=== PATIENT | female | born 1955 | race Caucasian/White ===

== ENCOUNTER 2021-02-06 12:45 | Outpatient (RCR) | payer OTHER, MEDICAID, SELFPAY ==
--- NOTE | 2021-01-16 16:14 | PT.OIE ---
Current Diagnoses Low back pain, unspecified (01/16/21) Visit Care Team Role Provider Type Nery Patel MD Attending Provider Non-Staff Primary Care Provider Referring Provider Specialty: Medical Address: [address] [place] [address], [id number] Email: Physical Therapy Initial Evaluation PT-OP-A Visit Information Start: 01/13/21 14:33 Freq: Status: Active Protocol: Document 01/16/21 14:28 LRN (Rec: 01/16/21 16:13 LRN [id number]) Out-Patient Physical Therapy Visit Information Visit Information Visit Type Initial Evaluation Visit Start Time 14:28 Visit Stop Time 15:20 Total Visit Minutes 52 Visit Number 1 Evaluation Information Evaluation Date 01/16/21 Precautions Precautions R Rotator cuff injury - 10 yrs ago. PT-OP-B Current Condition Start: 01/13/21 14:33 Freq: Status: Active Protocol: Document 01/16/21 14:28 LRN (Rec: 01/16/21 16:13 LRN [id number]) Current Condition History of Current Condition Onset Date 2 yrs ago (middle of 2018) Current Complaints Pain with sitting, bending forward, transfers, & putting pants on. History of Current Condition See developmental history below. Pt has ongoing R LBP from injury 2 yrs ago after using a chain saw in a constant position (leaning forward and to R). Pt has pain with leaning forward to pharmacy picking tech objects, lifting R leg (flexion) to put pants on. In morning must hang onto objects to put pant leg on with an increase in back pain. Pt is R handed. Prior Treatments and Tests Physical therapist in for 1 session and was given exercises for a twisted pelvis. Developmental History Developmental History Spent a day using chain saw leaning to the right and forward and the next day couldn't get out of bed or walk due to pain in the R side of the LB. For 6 months pain went down the R leg and sometimes the L. Pain also present across the low back. After 1 month was able to walk. Couldn't swim for a year (was a swimmer), but now can swim. Pain down the leg and the tingling down the leg went away after 6 months. Can can sit with support on the back. Can sit but back hurts more. Can't lift anything heavy. Can pick of trash. Treatment Goals Patient/Caregiver Goals Pt wants to know what she should be doing to strengthen Pt goal is to be painfree with bending over to pharmacy picking tech an object Pt will be able to sit 30' without increasing pain and put clothes on without holding onto something. Prior Functional Status Baseline Function- ADL's Independent Baseline Function- Mobility Independent Baseline Function- Gait Walking dog 1 mile a day. Baseline Function- Other Swam 2-3x/week Current Functional Impairments (Reported) Functional Limitations- ADL's Independent with ADLs Functional Limitations- Mobility/Gait Walking dog 1 mile a day. Functional Limitations- Recreation/ Yard work Hobbies Functional Limitations- Other Swims 1x/week Personal Factors Other Personal Factors That May Effect Lives [facility] with Therapy/Recovery partner. PT-OP-C Subjective Start: 01/13/21 14:33 Freq: Status: Active Protocol: Document 01/16/21 14:28 LRN (Rec: 01/16/21 16:13 LRN [id number]) Patient Questionnaires Oswestry Low Back Index Oswestry Score 26 Oswestry Impairment 40 to 59% Impaired (Score 40- 59) OP-PT Pain Assessment Pain Assessment Grid Paper Pain Assessment Grid Completed Yes Location R Low back Pain Location Details R low back, rated 4-6/10. Intensity 6 Scale Used Numeric (0 - 10) Description Sharp,Stabbing Description- Other With movement pain is stabbing in nature Frequency Constant Pain Aggravating Factors Changing Position,Sitting, Bending Pain Alleviating Factors Heat,Medication,Sitting Other Pain Alleviating Factors IBP occasionally Home Pain Medication Use Pain Medications Used Yes Home Pain Medication Frequency IBP rarely PT-OP-H Neuro Start: 01/13/21 14:33 Freq: Status: Active Protocol: Document 01/16/21 14:28 LRN (Rec: 01/16/21 16:13 LRN [id number]) Sensation Evaluation Gross Sensation Gross Sensation WNL Deep Tendon Reflex & Clonus Assessment Deep Tendon Reflex Bilateral Achilles Deep Tendon Reflex 3+ Normal But Brisk Bilateral Patellar Deep Tendon Reflex 3+ Normal But Brisk PT-OP-J Posture/Palpation/Skin Start: 01/13/21 14:33 Freq: Status: Active Protocol: Document 01/16/21 14:28 LRN (Rec: 01/16/21 16:13 LRN [id number]) Posture Evaluation Position Standing Evaluation View All positions Head/C-Spine Posture Neutral Position T-Spine Posture Flattened L-Spine Posture Flattened Shoulder Posture Neutral Weight Distribution Balanced Comments Posture Comments L shoulder is closer to centerline of body. R PSIS is high, C-curve of L/S with apex on Left. L innominate is anter rot, R innominate minimally anteriorly rotated. PT-OP-K Range of Motion Start: 01/13/21 14:33 Freq: Status: Active Protocol: Document 01/16/21 14:28 LRN (Rec: 01/16/21 16:13 LRN [id number]) Lumbar Spine Range of Motion Lumbar Spine Active Degrees Testing Position Standing Flexion 65 Extension 25 Rotation Left 35 Rotation Right 45 Lateral Flexion Left 15 Lateral Flexion Right 10 Comments Trunk flexion is 65 (45 deg's hip flexion) Pain at end range & on return Trunk extension is 25 (20 hip ext) No pain. Hip Goniometric Range of Motion Hip Right Passive Testing Position Supine Straight Leg Raise 90 Internal Rotation 30 External Rotation 65 Left Passive Testing Position Supine Straight Leg Raise 85 Internal Rotation 30 External Rotation 85 PT-OP-L Special Tests Start: 01/13/21 14:33 Freq: Status: Active Protocol: Document 01/16/21 14:28 LRN (Rec: 01/16/21 16:13 LRN [id number]) Special Tests Lumbar Spine Special Tests Straight Leg Raise Test Results Negative bilaterally. 85 deg's left, 90 deg's right PT-OP-M Strength Start: 01/13/21 14:33 Freq: Status: Active Protocol: Document 01/16/21 14:28 LRN (Rec: 01/16/21 16:13 LRN [id number]) Trunk Strength Trunk Manual Muscle Testing Testing Position Supine & Prone Core Stabilization Loss of core with RSLR, & R hip ext . Hip Strength Hip Manual Muscle Testing Right Flexion (L2) 5 Normal Extension (S1) 4 Good Abduction 5 Normal Adduction 5 Normal External Rotation 4 Good Internal Rotation 4 Good Left Flexion (L2) 5 Normal Extension (S1) 5 Normal Abduction 5 Normal Adduction 5 Normal External Rotation 5 Normal Internal Rotation 5 Normal PT-OP-Q Treatments Start: 01/13/21 14:33 Freq: Status: Active Protocol: Document 01/16/21 14:28 LRN (Rec: 01/16/21 16:13 LRN [id number]) Self-Care/Home Management Treatment Education Other Education Educated & discussed results of evaluation. Discussed goals and plan of care, pt agreeable. PT-OP-T Assessment and Plan Start: 01/13/21 14:33 Freq: Status: Active Protocol: Document 01/16/21 14:28 LRN (Rec: 01/16/21 16:13 LRN [id number]) Physical Therapy Assessment Rehab Potential Rehabilitation Potential Excellent Evaluation Complexity Number of Personal Factors/Comorbidities 1-2 Number of Body Systems Impaired 4 or More Clinical Presentation at Evaluation Evolving Impairments Impairments Activity Tolerance,Functional Mobility,Pain,Posture,ROM,Soft Tissue Mobility,Strength, Transfers Goals Three Impairment Pt not able to maintain core stability with resistance to LE's. Impairment Loss of core stability with resistance to R LE. LBP rated 4-6/10 Short Term Goal (STG) Pt will be able to stabilize the core with R LE movements against gravity. STG Duration 02/13/21 Aerial Erector Goal (LTG) Pt will be able to sit 30' without increasing R LBP. LTG Duration 04/16/21 Two Impairment Decreased lumbar and hip mobility w/onset of R LBP Impairment Lumbar flexion is 65 deg's (45 deg's hip flexion) with pain on return to stand. Hip IR is 30 deg's bilaterally , ER 65 R, 85 L. Short Term Goal (STG) Pt will be able to bend over to put on clothes without support with tolerable pain. STG Duration 02/13/21 Mcc Goal (LTG) Pt will be painfree with bending over to pharmacy picking tech a object and returning to upright. LTG Duration 04/16/21 One Impairment HEP Short Term Goal (STG) Pt will be educated in proper transfer (sit<>stand, sit<> supine) STG Duration 01/23/21 Aerial Erector Goal (LTG) Pt will be independent in a self care HEP so pt is educated in knowing what she should do to strengthen and minimize pain onset. LTG Duration 04/16/21 Assessment Summary Assessment Pt presents with mechanical and soft tissue dysfunction of the lumbar spine with decreased curvature of the thoracic and lumbar spine, muscle guarding of the lumbar paraspinals, R QL and R hip muscles. Pt has decreased lumbar mobility and hip IR/ER. Her pelvis alignment is normal. Pt shows decreased function per AFSANEH (score 26) pt is 20-39% impaired. The pt also demonstrates fair to poor body mechanics; therefore the pt will benefit from skilled physical therapy to achieve the above stated goals. Physical Therapy Plan Frequency and Duration Frequency of Treatment 2x/Week Plan of Care Start Date 01/16/21 Plan of Care End Date 04/16/21 Therapeutic Interventions Therapeutic Interventions Home Exercise Program,Joint Mobilizations,Manual Therapy, Neuromuscular Re-education, Patient/Caregiver Education, Self-Care/Home Management,Soft Tissue Mobilization,Taping, Therapeutic Activities, Therapeutic Exercises Modalities Cold Pack/Ice Massage,Electric Stimulation,Hot Packs, Traction- Mechanical, Ultrasound Next Visit Focus/Plan Next Note Type Treatment Note Next Visit Plan Pt education to minimize back pain: Transfer training, Body mechanics training. HEP: Stretches LB: Gentle flexion, active extension, L>R rotation, R>L SB, Hip R ER, marla IR. MFR for Sacral flexion. STM for L/S paraspinals. Modalities for pain control.
--- NOTE | 2021-01-16 16:15 | PT.OPPOC ---
Physical, Occupational & Speech Therapy At [facility] Current Diagnoses Low back pain, unspecified (01/16/21) Visit Care Team Role Provider Type Nery Patel MD Attending Provider Non-Staff Primary Care Provider Referring Provider Specialty: Medical Address: [address] [place] [address], [id number] Email: Plan Of Care PT-OP-T Assessment and Plan Start: 01/13/21 14:33 Freq: Status: Active Protocol: Document 01/16/21 14:28 LRN (Rec: 01/16/21 16:13 LRN [id number]) Physical Therapy Assessment Rehab Potential Rehabilitation Potential Excellent Evaluation Complexity Number of Personal Factors/Comorbidities 1-2 Number of Body Systems Impaired 4 or More Clinical Presentation at Evaluation Evolving Impairments Impairments Activity Tolerance,Functional Mobility,Pain,Posture,ROM,Soft Tissue Mobility,Strength, Transfers Goals Three Impairment Pt not able to maintain core stability with resistance to LE's. Impairment Loss of core stability with resistance to R LE. LBP rated 4-6/10 Short Term Goal (STG) Pt will be able to stabilize the core with R LE movements against gravity. STG Duration 02/13/21 Long-Term Goal (LTG) Pt will be able to sit 30' without increasing R LBP. LTG Duration 04/16/21 Two Impairment Decreased lumbar and hip mobility w/onset of R LBP Impairment Lumbar flexion is 65 deg's (45 deg's hip flexion) with pain on return to stand. Hip IR is 30 deg's bilaterally , ER 65 R, 85 L. Short Term Goal (STG) Pt will be able to bend over to put on clothes without support with tolerable pain. STG Duration 02/13/21 Deli Clerk Goal (LTG) Pt will be painfree with bending over to product picker a object and returning to upright. LTG Duration 04/16/21 One Impairment HEP Short Term Goal (STG) Pt will be educated in proper transfer (sit<>stand, sit<> supine) STG Duration 01/23/21 Long-Term Goal (LTG) Pt will be independent in a self care HEP so pt is educated in knowing what she should do to strengthen and minimize pain onset. LTG Duration 04/16/21 Assessment Summary Assessment Pt presents with mechanical and soft tissue dysfunction of the lumbar spine with decreased curvature of the thoracic and lumbar spine, muscle guarding of the lumbar paraspinals, R QL and R hip muscles. Pt has decreased lumbar mobility and hip IR/ER. Her pelvis alignment is normal. Pt shows decreased function per AFSANEH (score 26) pt is 20-39% impaired. The pt also demonstrates fair to poor body mechanics; therefore the pt will benefit from skilled physical therapy to achieve the above stated goals. Physical Therapy Plan Frequency and Duration Frequency of Treatment 2x/Week Plan of Care Start Date 01/16/21 Plan of Care End Date 04/16/21 Therapeutic Interventions Therapeutic Interventions Home Exercise Program,Joint Mobilizations,Manual Therapy, Neuromuscular Re-education, Patient/Caregiver Education, Self-Care/Home Management,Soft Tissue Mobilization,Taping, Therapeutic Activities, Therapeutic Exercises Modalities Cold Pack/Ice Massage,Electric Stimulation,Hot Packs, Traction- Mechanical, Ultrasound Next Visit Focus/Plan Next Note Type Treatment Note Next Visit Plan Pt education to minimize back pain: Transfer training, Body mechanics training. HEP: Stretches LB: Gentle flexion, active extension, L>R rotation, R>L SB, Hip R ER, marla IR. MFR for Sacral flexion. STM for L/S paraspinals. Modalities for pain control. Plan of Care Dates Plan of Care Start Date 01/16/21 Plan of Care End Date 04/16/21 Electronically Signed by: Gabriella Melendez, PT 01/16/21 [id number] Please Sign and Return: I have reviewed this Plan of Care and certify that the skilled therapy services above are required to meet the patient?s needs. Physician Signature Date Printed Name and Credentials Clinical Instructor Signature Printed Name and Credentials
--- NOTE | 2021-01-19 17:04 | PT.OTN ---
Current Diagnoses Flatback syndrome, thoracolumbar region (01/19/21) Flatback syndrome, lumbosacral region (01/19/21) Low back pain, unspecified (01/19/21) Muscle weakness (generalized) (01/19/21) Physical Therapy Treatment Note PT-OP-A Visit Information Start: 01/13/21 14:33 Freq: Status: Active Protocol: Document 01/19/21 12:49 LRN (Rec: 01/19/21 13:35 LRN [id number]) Out-Patient Physical Therapy Visit Information Visit Information Visit Type Treatment Note Visit Start Time 12:49 Visit Stop Time 13:29 Total Visit Minutes 40 Visit Number 2 Evaluation Information Evaluation Date 01/16/21 Precautions Precautions R Rotator cuff injury - 10 yrs ago. PT-OP-B Current Condition Start: 01/13/21 14:33 Freq: Status: Active Protocol: Document 01/16/21 14:28 LRN (Rec: 01/16/21 16:13 LRN [id number]) Current Condition History of Current Condition Onset Date 2 yrs ago (middle of 2018) Current Complaints Pain with sitting, bending forward, transfers, & putting pants on. History of Current Condition See developmental history below. Pt has ongoing R LBP from injury 2 yrs ago after using a chain saw in a constant position (leaning forward and to R). Pt has pain with leaning forward to bulk picker objects, lifting R leg (flexion) to put pants on. In morning must hang onto objects to put pant leg on with an increase in back pain. Pt is R handed. Prior Treatments and Tests Physical therapist in for 1 session and was given exercises for a twisted pelvis. Developmental History Developmental History Spent a day using chain saw leaning to the right and forward and the next day couldn't get out of bed or walk due to pain in the R side of the LB. For 6 months pain went down the R leg and sometimes the L. Pain also present across the low back. After 1 month was able to walk. Couldn't swim for a year (was a swimmer), but now can swim. Pain down the leg and the tingling down the leg went away after 6 months. Can can sit with support on the back. Can sit but back hurts more. Can't lift anything heavy. Can pick of trash. Treatment Goals Patient/Caregiver Goals Pt wants to know what she should be doing to strengthen Pt goal is to be painfree with bending over to bulk picker an object Pt will be able to sit 30' without increasing pain and put clothes on without holding onto something. Prior Functional Status Baseline Function- ADL's Independent Baseline Function- Mobility Independent Baseline Function- Gait Walking dog 1 mile a day. Baseline Function- Other Swam 2-3x/week Current Functional Impairments (Reported) Functional Limitations- ADL's Independent with ADLs Functional Limitations- Mobility/Gait Walking dog 1 mile a day. Functional Limitations- Recreation/ Yard work Hobbies Functional Limitations- Other Swims 1x/week Personal Factors Other Personal Factors That May Effect Lives [facility] with Therapy/Recovery partner. PT-OP-C Subjective Start: 01/13/21 14:33 Freq: Status: Active Protocol: Document 01/19/21 12:49 LRN (Rec: 01/19/21 13:35 LRN [id number]) OP-PT Subjective Patient Comments Patient Comments No change. PT-OP-H Neuro Start: 01/13/21 14:33 Freq: Status: Active Protocol: Document 01/16/21 14:28 LRN (Rec: 01/16/21 16:13 LRN [id number]) Sensation Evaluation Gross Sensation Gross Sensation WNL Deep Tendon Reflex & Clonus Assessment Deep Tendon Reflex Bilateral Achilles Deep Tendon Reflex 3+ Normal But Brisk Bilateral Patellar Deep Tendon Reflex 3+ Normal But Brisk PT-OP-J Posture/Palpation/Skin Start: 01/13/21 14:33 Freq: Status: Active Protocol: Document 01/16/21 14:28 LRN (Rec: 01/16/21 16:13 LRN [id number]) Posture Evaluation Position Standing Evaluation View All positions Head/C-Spine Posture Neutral Position T-Spine Posture Flattened L-Spine Posture Flattened Shoulder Posture Neutral Weight Distribution Balanced Comments Posture Comments L shoulder is closer to centerline of body. R PSIS is high, C-curve of L/S with apex on Left. L innominate is anter rot, R innominate minimally anteriorly rotated. PT-OP-K Range of Motion Start: 01/13/21 14:33 Freq: Status: Active Protocol: Document 01/16/21 14:28 LRN (Rec: 01/16/21 16:13 LRN [id number]) Lumbar Spine Range of Motion Lumbar Spine Active Degrees Testing Position Standing Flexion 65 Extension 25 Rotation Left 35 Rotation Right 45 Lateral Flexion Left 15 Lateral Flexion Right 10 Comments Trunk flexion is 65 (45 deg's hip flexion) Pain at end range & on return Trunk extension is 25 (20 hip ext) No pain. Hip Goniometric Range of Motion Hip Right Passive Testing Position Supine Straight Leg Raise 90 Internal Rotation 30 External Rotation 65 Left Passive Testing Position Supine Straight Leg Raise 85 Internal Rotation 30 External Rotation 85 PT-OP-L Special Tests Start: 01/13/21 14:33 Freq: Status: Active Protocol: Document 01/16/21 14:28 LRN (Rec: 01/16/21 16:13 LRN [id number]) Special Tests Lumbar Spine Special Tests Straight Leg Raise Test Results Negative bilaterally. 85 deg's left, 90 deg's right PT-OP-M Strength Start: 01/13/21 14:33 Freq: Status: Active Protocol: Document 01/16/21 14:28 LRN (Rec: 01/16/21 16:13 LRN [id number]) Trunk Strength Trunk Manual Muscle Testing Testing Position Supine & Prone Core Stabilization Loss of core with RSLR, & R hip ext . Hip Strength Hip Manual Muscle Testing Right Flexion (L2) 5 Normal Extension (S1) 4 Good Abduction 5 Normal Adduction 5 Normal External Rotation 4 Good Internal Rotation 4 Good Left Flexion (L2) 5 Normal Extension (S1) 5 Normal Abduction 5 Normal Adduction 5 Normal External Rotation 5 Normal Internal Rotation 5 Normal PT-OP-Q Treatments Start: 01/13/21 14:33 Freq: Status: Active Protocol: Document 01/19/21 12:49 LRN (Rec: 01/19/21 13:35 LRN [id number]) Therapeutic Exercises Supine Exercises Pirifromis stretch Supine Exercise Name Priformis stretch Side bilateral Reps/Minutes 1' each Comments Taught cross over w/opposite knee flexion or knee to opposite shoulder Lateral Hip stretch Supine Exercise Name Lateral Hip stretch Side bilateral Reps/Minutes 1' each Comments Extra time taken for training of proper positioning for mx stretch TA tightening Supine Exercise Name TA tightening Reps/Minutes 4' Comments Phys & v cuing to pull TA inward and not bulge. Sidelying Exercises TA tightening Sidelying Exercise Name Training Side bilateral Reps/Minutes 4' each side Comments Extra time taken to improve awareness of TA contraction Sitting Exercises Sit <> Supine transfer trainng Reps/Minutes 5' Stand<>Sit transfer training Reps/Minutes 5' Self-Care/Home Management Treatment Education Patient Education Body Mechanics Other Education Educated pt in proper body mechanics for transfers (hip hinging), lifting, reaching, turning, bending and lifting. Pt educated in proper posturing in sidelie, standing and sitting. Pt educated in LB strain in relation to body posturing and positioning. Activities Self-Care/Home Management Activities Issued & reviewed HEP: Piriformis stretch and Lateral hip stretch for improving hip IR. Pt I/S in isometric TA tightening in supine & sidelie . Pt to do sidelie TA tightening for HEP. PT-OP-T Assessment and Plan Start: 01/13/21 14:33 Freq: Status: Active Protocol: Document 01/19/21 12:49 LRN (Rec: 01/19/21 13:35 LRN [id number]) Physical Therapy Assessment Goals Three Impairment Pt not able to maintain core stability with resistance to LE's. Impairment Loss of core stability with resistance to R LE. LBP rated 4-6/10 Short Term Goal (STG) Pt will be able to stabilize the core with R LE movements against gravity. STG Duration 02/13/21 Mcc Goal (LTG) Pt will be able to sit 30' without increasing R LBP. LTG Duration 04/16/21 Two Impairment Decreased lumbar and hip mobility w/onset of R LBP Impairment Lumbar flexion is 65 deg's (45 deg's hip flexion) with pain on return to stand. Hip IR is 30 deg's bilaterally , ER 65 R, 85 L. Short Term Goal (STG) Pt will be able to bend over to put on clothes without support with tolerable pain. STG Duration 02/13/21 Mcc Goal (LTG) Pt will be painfree with bending over to bulk picker a object and returning to upright. LTG Duration 04/16/21 One Impairment HEP Short Term Goal (STG) Pt will be educated in proper transfer (sit<>stand, sit<> supine) (01/19/21: Pt educated in proper hip hinge for transfers and proper log roll technique for transfers in/out of bed). STG Duration 01/23/21 (01/19/21: MET GOAL ) Mcc Goal (LTG) Pt will be independent in a self care HEP so pt is educated in knowing what she should do to strengthen and minimize pain onset. (01/19/21: HEP added: Piriformis & lateral hip stretch). LTG Duration 04/16/21 (01/19/21: Progressed) Progress Towards Goals Progress Comments Progressed HEP. Assessment Summary Assessment Pt with mechanical and soft tissue dysfunction of the lumbar spine with decreased curvature of the thoracic and lumbar spine, muscle guarding of the lumbar paraspinals, R QL and R hip muscles. Pt has decreased lumbar mobility and hip IR/ER. She showed good understanding of issued HEP of hip IR stretching. She was very receptive to transfer training and appeared to have a good understanding of proper body mechanics for lifting, moving (turning), reaching, and proper posturing in sit and stand. She was also very receptive to education in back strain in varying positions. Physical Therapy Plan Frequency and Duration Frequency of Treatment 2x/Week Plan of Care Start Date 01/16/21 Plan of Care End Date 04/16/21 Next Visit Focus/Plan Next Note Type Treatment Note Next Visit Plan Monitor for pt's posturing/ body mechanics for least strain with movement. Review: Transfer training, and questions regarding Body mechanics training. Review HEP: TA tightening in sidelie (check in supine), lateral hip & Pirformis stretch. HEP: Stretches LB: Gentle flexion, active extension, L>R rotation, R>L SB; HEP: HIP: R ER, marla IR. MFR for Sacral flexion. STM for L/S paraspinals. Modalities for pain control.
--- NOTE | 2021-01-26 12:08 | PT.OTN ---
Current Diagnoses Flatback syndrome, thoracolumbar region (01/26/21) Flatback syndrome, lumbosacral region (01/26/21) Low back pain, unspecified (01/26/21) Muscle weakness (generalized) (01/26/21) Physical Therapy Treatment Note PT-OP-A Visit Information Start: 01/13/21 14:33 Freq: Status: Active Protocol: Document 01/26/21 11:23 LRN (Rec: 01/26/21 12:06 LRN [id number]) Out-Patient Physical Therapy Visit Information Visit Information Visit Type Treatment Note Visit Start Time 11: Visit Stop Time 12:01 Total Visit Minutes 38 Visit Number 3 Evaluation Information Evaluation Date 01/16/21 Precautions Precautions R Rotator cuff injury - 10 yrs ago. PT-OP-B Current Condition Start: 01/13/21 14:33 Freq: Status: Active Protocol: Document 01/16/21 14:28 LRN (Rec: 01/16/21 16:13 LRN [id number]) Current Condition History of Current Condition Onset Date 2 yrs ago (middle of 2018) Current Complaints Pain with sitting, bending forward, transfers, & putting pants on. History of Current Condition See developmental history below. Pt has ongoing R LBP from injury 2 yrs ago after using a chain saw in a constant position (leaning forward and to R). Pt has pain with leaning forward to order picker/assembler objects, lifting R leg (flexion) to put pants on. In morning must hang onto objects to put pant leg on with an increase in back pain. Pt is R handed. Prior Treatments and Tests Physical therapist in for 1 session and was given exercises for a twisted pelvis. Developmental History Developmental History Spent a day using chain saw leaning to the right and forward and the next day couldn't get out of bed or walk due to pain in the R side of the LB. For 6 months pain went down the R leg and sometimes the L. Pain also present across the low back. After 1 month was able to walk. Couldn't swim for a year (was a swimmer), but now can swim. Pain down the leg and the tingling down the leg went away after 6 months. Can can sit with support on the back. Can sit but back hurts more. Can't lift anything heavy. Can pick of trash. Treatment Goals Patient/Caregiver Goals Pt wants to know what she should be doing to strengthen Pt goal is to be painfree with bending over to order picker/assembler an object Pt will be able to sit 30' without increasing pain and put clothes on without holding onto something. Prior Functional Status Baseline Function- ADL's Independent Baseline Function- Mobility Independent Baseline Function- Gait Walking dog 1 mile a day. Baseline Function- Other Swam 2-3x/week Current Functional Impairments (Reported) Functional Limitations- ADL's Independent with ADLs Functional Limitations- Mobility/Gait Walking dog 1 mile a day. Functional Limitations- Recreation/ Yard work Hobbies Functional Limitations- Other Swims 1x/week Personal Factors Other Personal Factors That May Effect Lives [facility] with Therapy/Recovery partner. PT-OP-C Subjective Start: 01/13/21 14:33 Freq: Status: Active Protocol: Document 01/26/21 11:23 LRN (Rec: 01/26/21 12:06 LRN [id number]) OP-PT Subjective Patient Comments Patient Comments Paying better attension to body mechanics. Back feels the same. Pt states she is able to bend over and order picker/assembler light objects without back pain if I do it right. Able to sit upright without pain if sits correctly. Sitting in car is worse. PT-OP-H Neuro Start: 01/13/21 14:33 Freq: Status: Active Protocol: Document 01/16/21 14:28 LRN (Rec: 01/16/21 16:13 LRN [id number]) Sensation Evaluation Gross Sensation Gross Sensation WNL Deep Tendon Reflex & Clonus Assessment Deep Tendon Reflex Bilateral Achilles Deep Tendon Reflex 3+ Normal But Brisk Bilateral Patellar Deep Tendon Reflex 3+ Normal But Brisk PT-OP-J Posture/Palpation/Skin Start: 01/13/21 14:33 Freq: Status: Active Protocol: Document 01/16/21 14:28 LRN (Rec: 01/16/21 16:13 LRN [id number]) Posture Evaluation Position Standing Evaluation View All positions Head/C-Spine Posture Neutral Position T-Spine Posture Flattened L-Spine Posture Flattened Shoulder Posture Neutral Weight Distribution Balanced Comments Posture Comments L shoulder is closer to centerline of body. R PSIS is high, C-curve of L/S with apex on Left. L innominate is anter rot, R innominate minimally anteriorly rotated. PT-OP-K Range of Motion Start: 01/13/21 14:33 Freq: Status: Active Protocol: Document 01/16/21 14:28 LRN (Rec: 01/16/21 16:13 LRN [id number]) Lumbar Spine Range of Motion Lumbar Spine Active Degrees Testing Position Standing Flexion 65 Extension 25 Rotation Left 35 Rotation Right 45 Lateral Flexion Left 15 Lateral Flexion Right 10 Comments Trunk flexion is 65 (45 deg's hip flexion) Pain at end range & on return Trunk extension is 25 (20 hip ext) No pain. Hip Goniometric Range of Motion Hip Right Passive Testing Position Supine Straight Leg Raise 90 Internal Rotation 30 External Rotation 65 Left Passive Testing Position Supine Straight Leg Raise 85 Internal Rotation 30 External Rotation 85 PT-OP-L Special Tests Start: 01/13/21 14:33 Freq: Status: Active Protocol: Document 01/16/21 14:28 LRN (Rec: 01/16/21 16:13 LRN [id number]) Special Tests Lumbar Spine Special Tests Straight Leg Raise Test Results Negative bilaterally. 85 deg's left, 90 deg's right PT-OP-M Strength Start: 01/13/21 14:33 Freq: Status: Active Protocol: Document 01/16/21 14:28 LRN (Rec: 01/16/21 16:13 LRN [id number]) Trunk Strength Trunk Manual Muscle Testing Testing Position Supine & Prone Core Stabilization Loss of core with RSLR, & R hip ext . Hip Strength Hip Manual Muscle Testing Right Flexion (L2) 5 Normal Extension (S1) 4 Good Abduction 5 Normal Adduction 5 Normal External Rotation 4 Good Internal Rotation 4 Good Left Flexion (L2) 5 Normal Extension (S1) 5 Normal Abduction 5 Normal Adduction 5 Normal External Rotation 5 Normal Internal Rotation 5 Normal PT-OP-Q Treatments Start: 01/13/21 14:33 Freq: Status: Active Protocol: Document 01/26/21 11:23 LRN (Rec: 01/26/21 12:06 LRN [id number]) Therapeutic Exercises Supine Exercises Fig 4 Stretch Supine Exercise Name R side: Fig 4 stretch Side right Reps/Minutes 1' hold Comments Extra time for training Pirifromis stretch Supine Exercise Name Priformis stretch Side bilateral Reps/Minutes 1' each Comments Extra time taken to review KTC w/ankle over knee Lateral Hip stretch Supine Exercise Name Lateral Hip stretch Side bilateral Reps/Minutes 1' each Comments Extra time taken for training of proper positioning for mx stretch TA tightening Supine Exercise Name TA tightening Reps/Minutes 4' Comments Phys & v cuing to pull TA inward and not bulge. Prone Exercises DANIE Prone Exercise Name DANIE ROM/strengthening Reps/Minutes 2-3 Hold x 10 Sidelying Exercises TA tightening Sidelying Exercise Name TA tightening for 10 hold Side bilateral Reps/Minutes 4' each side Comments Much extra time for training of awareness of TA contraction holding Self-Care/Home Management Treatment Education Patient Education Body Mechanics Other Education Review of proper body mechanics for picking up object off floor, transfers from chair & up/down off plinth. Activities Self-Care/Home Management Activities Re-issued & reveiwed HEP: Piriformis stretch and Lateral hip stretch, added R hip ER stretch. Added to HEP: DANIE stretch/ strengthening. PT-OP-T Assessment and Plan Start: 01/13/21 14:33 Freq: Status: Active Protocol: Document 01/26/21 11:23 LRN (Rec: 01/26/21 12:06 LRN [id number]) Physical Therapy Assessment Goals Three Impairment Pt not able to maintain core stability with resistance to LE's. Impairment Loss of core stability with resistance to R LE. LBP rated 4-6/10 Short Term Goal (STG) Pt will be able to stabilize the core with R LE movements against gravity. STG Duration 02/13/21 Managing Partner Goal (LTG) Pt will be able to sit 30' in car without increasing R LBP. LTG Duration 04/16/21 (01/26/21: GOAL MET with use of back support). Two Impairment Decreased lumbar and hip mobility w/onset of R LBP Impairment Lumbar flexion is 65 deg's (45 deg's hip flexion) with pain on return to stand. Hip IR is 30 deg's bilaterally , ER 65 R, 85 L. Short Term Goal (STG) Pt will be able to bend over to put on clothes without support with tolerable pain. (01/26/21: Able to dress today ). STG Duration 02/13/21 (01/26/21: MET GOAL) Residential Goal (LTG) Pt will be painfree with bending over to order picker/assembler a object and returning to upright. LTG Duration 04/16/21 (01/26/21: MET GOAL) One Impairment HEP Short Term Goal (STG) Pt will be educated in proper transfer (sit<>stand, sit<> supine) (01/19/21: Pt educated in proper hip hinge for transfers and proper log roll technique for transfers in/out of bed). STG Duration 01/23/21 (01/19/21: MET GOAL ) Managing Partner Goal (LTG) Pt will be independent in a self care HEP so pt is educated in knowing what she should do to strengthen and minimize pain onset. (01/19/21: HEP added: Piriformis & lateral hip stretch). (01/26/21: HEP: R hip ER stretch & DANIE stretch/ strengthening) LTG Duration 04/16/21 (01/19/21: Progressed) Progress Towards Goals Progress Comments LTG #3: MET. GOAL #2: STG & LTG: MET LTG #1: Progressed HEP. Assessment Summary Assessment Pt able to maintain core stability and TA tight in R sidelie, but has difficulty with L sidelie. Pt has poor habit of transfer into bed. Good understanding of new HEP. Physical Therapy Plan Frequency and Duration Frequency of Treatment 2x/Week Plan of Care Start Date 01/16/21 Plan of Care End Date 04/16/21 Next Visit Focus/Plan Next Note Type Treatment Note Next Visit Plan Monitor for pt's posturing/ body mechanics for least strain with movement. HEP: Review: HIP: R ER, marla IR. HEP: Stretches LB: Gentle flexion, active extension, L>R rotation, R>L SB; Recheck R hip ER with L hip in 1 weelk. MFR for Sacral flexion. STM for L/S paraspinals. Modalities for pain control.
--- NOTE | 2021-02-02 16:20 | PT.OTN ---
Current Diagnoses Flatback syndrome, thoracolumbar region (02/02/21) Flatback syndrome, lumbosacral region (02/02/21) Low back pain, unspecified (02/02/21) Muscle weakness (generalized) (02/02/21) Physical Therapy Treatment Note PT-OP-A Visit Information Start: 01/13/21 14:33 Freq: Status: Active Protocol: Document 02/02/21 13:30 LRN (Rec: 02/02/21 14:18 LRN [id number]) Out-Patient Physical Therapy Visit Information Visit Information Visit Type Treatment Note Visit Start Time 13:30 Visit Stop Time 14:17 Total Visit Minutes 47 Visit Number 4 Evaluation Information Evaluation Date 01/16/21 Precautions Precautions R Rotator cuff injury - 10 yrs ago. PT-OP-B Current Condition Start: 01/13/21 14:33 Freq: Status: Active Protocol: Document 01/16/21 14:28 LRN (Rec: 01/16/21 16:13 LRN [id number]) Current Condition History of Current Condition Onset Date 2 yrs ago (middle of 2018) Current Complaints Pain with sitting, bending forward, transfers, & putting pants on. History of Current Condition See developmental history below. Pt has ongoing R LBP from injury 2 yrs ago after using a chain saw in a constant position (leaning forward and to R). Pt has pain with leaning forward to fish bait picker objects, lifting R leg (flexion) to put pants on. In morning must hang onto objects to put pant leg on with an increase in back pain. Pt is R handed. Prior Treatments and Tests Physical therapist in for 1 session and was given exercises for a twisted pelvis. Developmental History Developmental History Spent a day using chain saw leaning to the right and forward and the next day couldn't get out of bed or walk due to pain in the R side of the LB. For 6 months pain went down the R leg and sometimes the L. Pain also present across the low back. After 1 month was able to walk. Couldn't swim for a year (was a swimmer), but now can swim. Pain down the leg and the tingling down the leg went away after 6 months. Can can sit with support on the back. Can sit but back hurts more. Can't lift anything heavy. Can pick of trash. Treatment Goals Patient/Caregiver Goals Pt wants to know what she should be doing to strengthen Pt goal is to be painfree with bending over to fish bait picker an object Pt will be able to sit 30' without increasing pain and put clothes on without holding onto something. Prior Functional Status Baseline Function- ADL's Independent Baseline Function- Mobility Independent Baseline Function- Gait Walking dog 1 mile a day. Baseline Function- Other Swam 2-3x/week Current Functional Impairments (Reported) Functional Limitations- ADL's Independent with ADLs Functional Limitations- Mobility/Gait Walking dog 1 mile a day. Functional Limitations- Recreation/ Yard work Hobbies Functional Limitations- Other Swims 1x/week Personal Factors Other Personal Factors That May Effect Lives [facility] with Therapy/Recovery partner. PT-OP-C Subjective Start: 01/13/21 14:33 Freq: Status: Active Protocol: Document 02/02/21 13:30 LRN (Rec: 02/02/21 14:18 LRN [id number]) OP-PT Subjective Patient Comments Patient Comments Back is the same. Feels stronger. Pain is rated 2/10 in low back. None of the bad pain. PT-OP-H Neuro Start: 01/13/21 14:33 Freq: Status: Active Protocol: Document 01/16/21 14:28 LRN (Rec: 01/16/21 16:13 LRN [id number]) Sensation Evaluation Gross Sensation Gross Sensation WNL Deep Tendon Reflex & Clonus Assessment Deep Tendon Reflex Bilateral Achilles Deep Tendon Reflex 3+ Normal But Brisk Bilateral Patellar Deep Tendon Reflex 3+ Normal But Brisk PT-OP-J Posture/Palpation/Skin Start: 01/13/21 14:33 Freq: Status: Active Protocol: Document 01/16/21 14:28 LRN (Rec: 01/16/21 16:13 LRN [id number]) Posture Evaluation Position Standing Evaluation View All positions Head/C-Spine Posture Neutral Position T-Spine Posture Flattened L-Spine Posture Flattened Shoulder Posture Neutral Weight Distribution Balanced Comments Posture Comments L shoulder is closer to centerline of body. R PSIS is high, C-curve of L/S with apex on Left. L innominate is anter rot, R innominate minimally anteriorly rotated. PT-OP-K Range of Motion Start: 01/13/21 14:33 Freq: Status: Active Protocol: Document 01/16/21 14:28 LRN (Rec: 01/16/21 16:13 LRN [id number]) Lumbar Spine Range of Motion Lumbar Spine Active Degrees Testing Position Standing Flexion 65 Extension 25 Rotation Left 35 Rotation Right 45 Lateral Flexion Left 15 Lateral Flexion Right 10 Comments Trunk flexion is 65 (45 deg's hip flexion) Pain at end range & on return Trunk extension is 25 (20 hip ext) No pain. Hip Goniometric Range of Motion Hip Right Passive Testing Position Supine Straight Leg Raise 90 Internal Rotation 30 External Rotation 65 Left Passive Testing Position Supine Straight Leg Raise 85 Internal Rotation 30 External Rotation 85 PT-OP-L Special Tests Start: 01/13/21 14:33 Freq: Status: Active Protocol: Document 01/16/21 14:28 LRN (Rec: 01/16/21 16:13 LRN [id number]) Special Tests Lumbar Spine Special Tests Straight Leg Raise Test Results Negative bilaterally. 85 deg's left, 90 deg's right PT-OP-M Strength Start: 01/13/21 14:33 Freq: Status: Active Protocol: Document 01/16/21 14:28 LRN (Rec: 01/16/21 16:13 LRN [id number]) Trunk Strength Trunk Manual Muscle Testing Testing Position Supine & Prone Core Stabilization Loss of core with RSLR, & R hip ext . Hip Strength Hip Manual Muscle Testing Right Flexion (L2) 5 Normal Extension (S1) 4 Good Abduction 5 Normal Adduction 5 Normal External Rotation 4 Good Internal Rotation 4 Good Left Flexion (L2) 5 Normal Extension (S1) 5 Normal Abduction 5 Normal Adduction 5 Normal External Rotation 5 Normal Internal Rotation 5 Normal PT-OP-Q Treatments Start: 01/13/21 14:33 Freq: Status: Active Protocol: Document 02/02/21 13:30 LRN (Rec: 02/02/21 14:18 LRN [id number]) Therapeutic Exercises Supine Exercises TA w/SLR Supine Exercise Name TA w/SLR Side bilateral Reps/Minutes 6' Hip Flexor stretch Supine Exercise Name Hip Flexor stretch Side bilateral Reps/Minutes 4' Comments Extra time to determine max stretch tolerance position TA w/heel slides Supine Exercise Name TA w/heel slides Side bilateral Reps/Minutes 8' Comments Pt needed much phy & v cuing to gain awareness of pelvic/ lumbar instability Fig 4 Stretch Supine Exercise Name R side: Fig 4 stretch Side right Reps/Minutes 1' hold Pirifromis stretch Supine Exercise Name Priformis stretch Side bilateral Reps/Minutes 1' each Comments Extra time taken to review KTC w/ankle over knee Lateral Hip stretch Supine Exercise Name Lateral Hip stretch Side bilateral Reps/Minutes 1' x1 Left, x2 Right Comments Extra time taken for review of proper positioning for mx stretch TA tightening Supine Exercise Name Tighten with cough & laugh Reps/Minutes 10x each Comments Phys & v cuing to pull TA inward and not bulge. Prone Exercises Trunk Rot Prone Exercise Name Feet sway side to side Side bilateral Reps/Minutes 15x DANIE Prone Exercise Name DANIE ROM/strengthening Reps/Minutes 3 Hold, 15x 2 Self-Care/Home Management Treatment Education Patient Education Home Exercise Program Activities Self-Care/Home Management Activities Issued & reviewed HEP of core stabilization ex (DANIE, TA, TA heel slides, TA leg SLR; verbal review of: TA may, TA double may, TA deadbug, TA wall may) with verbal I/S of progression of ex (10x 3 before moving to next exercise ). Issued & reviewed HEP: Hip flexor stretch in supine & verbal review of standing hip flexor stretch. PT-OP-T Assessment and Plan Start: 01/13/21 14:33 Freq: Status: Active Protocol: Document 02/02/21 13:30 LRN (Rec: 02/02/21 14:18 LRN [id number]) Physical Therapy Assessment Goals Three Impairment Pt not able to maintain core stability with resistance to LE's. Impairment Loss of core stability with resistance to R LE. LBP rated 4-6/10 Short Term Goal (STG) Pt will be able to stabilize the core with R LE movements against gravity. STG Duration 02/13/21 Half-Way Goal (LTG) Pt will be able to sit 30' in car without increasing R LBP. LTG Duration 04/16/21 (01/26/21: GOAL MET with use of back support). Two Impairment Decreased lumbar and hip mobility w/onset of R LBP Impairment Lumbar flexion is 65 deg's (45 deg's hip flexion) with pain on return to stand. Hip IR is 30 deg's bilaterally , ER 65 R, 85 L. Short Term Goal (STG) Pt will be able to bend over to put on clothes without support with tolerable pain. (01/26/21: Able to dress today ). STG Duration 02/13/21 (01/26/21: MET GOAL) Half-Way Goal (LTG) Pt will be painfree with bending over to fish bait picker a object and returning to upright. LTG Duration 04/16/21 (01/26/21: MET GOAL) One Impairment HEP Short Term Goal (STG) Pt will be educated in proper transfer (sit<>stand, sit<> supine) (01/19/21: Pt educated in proper hip hinge for transfers and proper log roll technique for transfers in/out of bed). STG Duration 01/23/21 (01/19/21: MET GOAL ) Half-Way Goal (LTG) Pt will be independent in a self care HEP so pt is educated in knowing what she should do to strengthen and minimize pain onset. (01/19/21: HEP added: Piriformis & lateral hip stretch). (01/26/21: HEP: R hip ER stretch & DANIE stretch/ strengthening) LTG Duration 04/16/21 (01/19/21: Progressed) Assessment Summary Assessment Pt shows good body mechanics for transfers and is not straining with transfers. Good tolerance to trunk ext AROM. Physical Therapy Plan Frequency and Duration Frequency of Treatment 2x/Week Plan of Care Start Date 01/16/21 Plan of Care End Date 04/16/21 Next Visit Focus/Plan Next Note Type Treatment Note Next Visit Plan Review hip flexor stretch ( primarily standing). Assess for core stability with LE movement (STG #3) & sitting tolerance (LTG #3) HEP: Stretches LB: Gentle flexion, L>R rotation, R>L SB; Recheck R hip ER with L hip next visit, or first of next week. MFR for Sacral flexion. STM for L/S paraspinals. Modalities for pain control.
--- NOTE | 2021-02-06 15:54 | PT.OTN ---
Current Diagnoses Flatback syndrome, thoracolumbar region (02/06/21) Flatback syndrome, lumbosacral region (02/06/21) Low back pain, unspecified (02/06/21) Muscle weakness (generalized) (02/06/21) Physical Therapy Treatment Note PT-OP-A Visit Information Start: 01/13/21 14:33 Freq: Status: Active Protocol: Document 02/06/21 12:48 LRN (Rec: 02/06/21 13:36 LRN [id number]) Out-Patient Physical Therapy Visit Information Visit Information Visit Type Treatment Note Visit Start Time 12:49 Visit Stop Time 13:35 Total Visit Minutes 48 Visit Number 5 Evaluation Information Evaluation Date 01/16/21 Precautions Precautions R Rotator cuff injury - 10 yrs ago. PT-OP-B Current Condition Start: 01/13/21 14:33 Freq: Status: Active Protocol: Document 01/16/21 14:28 LRN (Rec: 01/16/21 16:13 LRN [id number]) Current Condition History of Current Condition Onset Date 2 yrs ago (middle of 2018) Current Complaints Pain with sitting, bending forward, transfers, & putting pants on. History of Current Condition See developmental history below. Pt has ongoing R LBP from injury 2 yrs ago after using a chain saw in a constant position (leaning forward and to R). Pt has pain with leaning forward to tack picker objects, lifting R leg (flexion) to put pants on. In morning must hang onto objects to put pant leg on with an increase in back pain. Pt is R handed. Prior Treatments and Tests Physical therapist in for 1 session and was given exercises for a twisted pelvis. Developmental History Developmental History Spent a day using chain saw leaning to the right and forward and the next day couldn't get out of bed or walk due to pain in the R side of the LB. For 6 months pain went down the R leg and sometimes the L. Pain also present across the low back. After 1 month was able to walk. Couldn't swim for a year (was a swimmer), but now can swim. Pain down the leg and the tingling down the leg went away after 6 months. Can can sit with support on the back. Can sit but back hurts more. Can't lift anything heavy. Can pick of trash. Treatment Goals Patient/Caregiver Goals Pt wants to know what she should be doing to strengthen Pt goal is to be painfree with bending over to tack picker an object Pt will be able to sit 30' without increasing pain and put clothes on without holding onto something. Prior Functional Status Baseline Function- ADL's Independent Baseline Function- Mobility Independent Baseline Function- Gait Walking dog 1 mile a day. Baseline Function- Other Swam 2-3x/week Current Functional Impairments (Reported) Functional Limitations- ADL's Independent with ADLs Functional Limitations- Mobility/Gait Walking dog 1 mile a day. Functional Limitations- Recreation/ Yard work Hobbies Functional Limitations- Other Swims 1x/week Personal Factors Other Personal Factors That May Effect Lives [facility] with Therapy/Recovery partner. PT-OP-C Subjective Start: 01/13/21 14:33 Freq: Status: Active Protocol: Document 02/06/21 12:48 LRN (Rec: 02/06/21 13:36 LRN [id number]) OP-PT Subjective Patient Comments Patient Comments Back is good, less pain. Still being more careful. Pain is 2/10 unless doing something silly. Can travel with back support 30-60' without back hurting. Sat yesterday overall 6 hrs with rest breaks using back support without onset of back pain. PT-OP-H Neuro Start: 01/13/21 14:33 Freq: Status: Active Protocol: Document 01/16/21 14:28 LRN (Rec: 01/16/21 16:13 LRN [id number]) Sensation Evaluation Gross Sensation Gross Sensation WNL Deep Tendon Reflex & Clonus Assessment Deep Tendon Reflex Bilateral Achilles Deep Tendon Reflex 3+ Normal But Brisk Bilateral Patellar Deep Tendon Reflex 3+ Normal But Brisk PT-OP-J Posture/Palpation/Skin Start: 01/13/21 14:33 Freq: Status: Active Protocol: Document 01/16/21 14:28 LRN (Rec: 01/16/21 16:13 LRN [id number]) Posture Evaluation Position Standing Evaluation View All positions Head/C-Spine Posture Neutral Position T-Spine Posture Flattened L-Spine Posture Flattened Shoulder Posture Neutral Weight Distribution Balanced Comments Posture Comments L shoulder is closer to centerline of body. R PSIS is high, C-curve of L/S with apex on Left. L innominate is anter rot, R innominate minimally anteriorly rotated. PT-OP-K Range of Motion Start: 01/13/21 14:33 Freq: Status: Active Protocol: Document 02/06/21 12:48 LRN (Rec: 02/06/21 13:36 LRN [id number]) Hip Goniometric Range of Motion Hip Right Passive Internal Rotation 35 External Rotation 65 Left Passive Internal Rotation 35 External Rotation 70 PT-OP-L Special Tests Start: 01/13/21 14:33 Freq: Status: Active Protocol: Document 01/16/21 14:28 LRN (Rec: 01/16/21 16:13 LRN [id number]) Special Tests Lumbar Spine Special Tests Straight Leg Raise Test Results Negative bilaterally. 85 deg's left, 90 deg's right PT-OP-M Strength Start: 01/13/21 14:33 Freq: Status: Active Protocol: Document 01/16/21 14:28 LRN (Rec: 01/16/21 16:13 LRN [id number]) Trunk Strength Trunk Manual Muscle Testing Testing Position Supine & Prone Core Stabilization Loss of core with RSLR, & R hip ext . Hip Strength Hip Manual Muscle Testing Right Flexion (L2) 5 Normal Extension (S1) 4 Good Abduction 5 Normal Adduction 5 Normal External Rotation 4 Good Internal Rotation 4 Good Left Flexion (L2) 5 Normal Extension (S1) 5 Normal Abduction 5 Normal Adduction 5 Normal External Rotation 5 Normal Internal Rotation 5 Normal PT-OP-Q Treatments Start: 01/13/21 14:33 Freq: Status: Active Protocol: Document 02/06/21 12:48 LRN (Rec: 02/06/21 13:36 LRN [id number]) Therapeutic Exercises Supine Exercises Hip Flexor stretch Supine Exercise Name Hip Flexor stretch f/b active stretch Side bilateral Reps/Minutes 4' TA w/heel slides Supine Exercise Name TA w/heel slides Side bilateral Reps/Minutes 8' Comments Pt needed much phy & v cuing to gain awareness of pelvic/ lumbar instability Fig 4 Stretch Supine Exercise Name R side: Fig 4 stretch Side right Reps/Minutes 1' hold Comments PROM of hip ER taken bilaterally Sitting Exercises Trunk Flex Sitting Exercise Name Trunk Flex Equipment Used Lev 2 TBand each hand Reps/Minutes 10x Comments Pt moves slow & needed phys & v cuing to engage abdominals. Standing Exercises Hip Flexor stretch Standing Exercise Name Runner's stretch Side bilateral Reps/Minutes 3' Comments Extra phys & v cuing needed for R hip flexor stretch to avoid R PSIS pain. Trunk SB stretch Standing Exercise Name SB stretch Side bilateral Comments Phys & v cuing needed to help pt engage her abdominal muscles. Trunk Rot Standing Exercise Name Trunk Rot Side right Reps/Minutes 4' Comments Not able to get pt to use TA & ABS; therefore DC'd the ex Trunk tomeka lateral flex Standing Exercise Name Sidestep away w/TB resistance Side bilateral Equipment Used Lev 2 TB held at chest height Reps/Minutes 10x each of 2 step outs PT-OP-T Assessment and Plan Start: 01/13/21 14:33 Freq: Status: Active Protocol: Document 02/06/21 12:48 LRN (Rec: 02/06/21 13:36 LRN [id number]) Physical Therapy Assessment Goals Three Impairment Pt not able to maintain core stability with resistance to LE's. Impairment Loss of core stability with resistance to R LE. LBP rated 4-6/10 Short Term Goal (STG) Pt will be able to stabilize the core with R LE movements against gravity. (02/06/21: MIld loss of stability of core with RLE flex movement against gravity, not checked for other planes) . STG Duration 02/13/21 Beveler Goal (LTG) Pt will be able to sit 30' in car without increasing R LBP. (02/06/21: Able to sit 30-60' using a back support without onset of back pain) LTG Duration 04/16/21 (01/26/21: GOAL MET with use of back support). Two Impairment Decreased lumbar and hip mobility w/onset of R LBP Impairment Lumbar flexion is 65 deg's (45 deg's hip flexion) with pain on return to stand. Hip IR is 30 deg's bilaterally , ER 65 R, 85 L. Short Term Goal (STG) Pt will be able to bend over to put on clothes without support with tolerable pain. (01/26/21: Able to dress today ). STG Duration 02/13/21 (01/26/21: MET GOAL) Beveler Goal (LTG) Pt will be painfree with bending over to tack picker a object and returning to upright. LTG Duration 04/16/21 (01/26/21: MET GOAL) One Impairment HEP Short Term Goal (STG) Pt will be educated in proper transfer (sit<>stand, sit<> supine) (01/19/21: Pt educated in proper hip hinge for transfers and proper log roll technique for transfers in/out of bed). STG Duration 01/23/21 (01/19/21: MET GOAL ) Beveler Goal (LTG) Pt will be independent in a self care HEP so pt is educated in knowing what she should do to strengthen and minimize pain onset. (01/19/21: HEP added: Piriformis & lateral hip stretch). (01/26/21: HEP: R hip ER stretch & DANIE stretch/ strengthening) LTG Duration 04/16/21 (01/19/21: Progressed) Assessment Summary Assessment Pt demonstrates core weakness with lifting of RLE. R hip ER ROM has slightly improved, but still decreased 5 deg's compared to the left. Pt has not been compliant recently, but promises to be better. Physical Therapy Plan Frequency and Duration Frequency of Treatment 2x/Week Plan of Care Start Date 01/16/21 Plan of Care End Date 04/16/21 Next Visit Focus/Plan Next Note Type Treatment Note Next Visit Plan Pt next visit in 3 wks due to holiday. Recheck R hip ER to normalize with L hip. Recheck core stability with LE movement (STG #3) ~2 visit limit left with insurance. Discuss POC. HEP: Stretches LB: Gentle flexion, L>R rotation, R>L SB; ?MFR for Sacral flexion. STM for L/S paraspinals. Modalities for pain control if needed.
--- NOTE | 2021-08-18 08:35 | PT.OPDS ---
Current Diagnoses Flatback syndrome, thoracolumbar region (02/06/21) Flatback syndrome, lumbosacral region (02/06/21) Low back pain, unspecified (02/06/21) Muscle weakness (generalized) (02/06/21) Visit Care Team Role Provider Type Nery Patel MD Attending Provider Non-Staff Primary Care Provider Referring Provider Specialty: Medical Address: [address] [place] [address], [id number] Email: Visit Number Visit Number 5 Discharge Summary PT-OP-B Current Condition Start: 01/13/21 14:33 Freq: Status: Active Protocol: Document 01/16/21 14:28 LRN (Rec: 01/16/21 16:13 LRN [id number]) Current Condition History of Current Condition Onset Date 2 yrs ago (middle of 2018) Current Complaints Pain with sitting, bending forward, transfers, & putting pants on. History of Current Condition See developmental history below. Pt has ongoing R LBP from injury 2 yrs ago after using a chain saw in a constant position (leaning forward and to R). Pt has pain with leaning forward to picking crew supervisor objects, lifting R leg (flexion) to put pants on. In morning must hang onto objects to put pant leg on with an increase in back pain. Pt is R handed. Prior Treatments and Tests Physical therapist in for 1 session and was given exercises for a twisted pelvis. Developmental History Developmental History Spent a day using chain saw leaning to the right and forward and the next day couldn't get out of bed or walk due to pain in the R side of the LB. For 6 months pain went down the R leg and sometimes the L. Pain also present across the low back. After 1 month was able to walk. Couldn't swim for a year (was a swimmer), but now can swim. Pain down the leg and the tingling down the leg went away after 6 months. Can can sit with support on the back. Can sit but back hurts more. Can't lift anything heavy. Can pick of trash. Treatment Goals Patient/Caregiver Goals Pt wants to know what she should be doing to strengthen Pt goal is to be painfree with bending over to picking crew supervisor an object Pt will be able to sit 30' without increasing pain and put clothes on without holding onto something. Prior Functional Status Baseline Function- ADL's Independent Baseline Function- Mobility Independent Baseline Function- Gait Walking dog 1 mile a day. Baseline Function- Other Swam 2-3x/week Current Functional Impairments (Reported) Functional Limitations- ADL's Independent with ADLs Functional Limitations- Mobility/Gait Walking dog 1 mile a day. Functional Limitations- Recreation/ Yard work Hobbies Functional Limitations- Other Swims 1x/week Personal Factors Other Personal Factors That May Effect Lives [facility] with Therapy/Recovery partner. PT-OP-C Subjective Start: 01/13/21 14:33 Freq: Status: Active Protocol: Document 02/06/21 12:48 LRN (Rec: 02/06/21 13:36 LRN [id number]) OP-PT Subjective Patient Comments Patient Comments Back is good, less pain. Still being more careful. Pain is 2/10 unless doing something silly. Can travel with back support 30-60' without back hurting. Sat yesterday overall 6 hrs with rest breaks using back support without onset of back pain. PT-OP-H Neuro Start: 01/13/21 14:33 Freq: Status: Active Protocol: Document 01/16/21 14:28 LRN (Rec: 01/16/21 16:13 LRN [id number]) Sensation Evaluation Gross Sensation Gross Sensation WNL Deep Tendon Reflex & Clonus Assessment Deep Tendon Reflex Bilateral Achilles Deep Tendon Reflex 3+ Normal But Brisk Bilateral Patellar Deep Tendon Reflex 3+ Normal But Brisk PT-OP-J Posture/Palpation/Skin Start: 01/13/21 14:33 Freq: Status: Active Protocol: Document 01/16/21 14:28 LRN (Rec: 01/16/21 16:13 LRN [id number]) Posture Evaluation Position Standing Evaluation View All positions Head/C-Spine Posture Neutral Position T-Spine Posture Flattened L-Spine Posture Flattened Shoulder Posture Neutral Weight Distribution Balanced Comments Posture Comments L shoulder is closer to centerline of body. R PSIS is high, C-curve of L/S with apex on Left. L innominate is anter rot, R innominate minimally anteriorly rotated. PT-OP-K Range of Motion Start: 01/13/21 14:33 Freq: Status: Active Protocol: Document 02/06/21 12:48 LRN (Rec: 02/06/21 13:36 LRN [id number]) Hip Goniometric Range of Motion Hip Right Passive Internal Rotation 35 External Rotation 65 Left Passive Internal Rotation 35 External Rotation 70 PT-OP-L Special Tests Start: 01/13/21 14:33 Freq: Status: Active Protocol: Document 01/16/21 14:28 LRN (Rec: 01/16/21 16:13 LRN [id number]) Special Tests Lumbar Spine Special Tests Straight Leg Raise Test Results Negative bilaterally. 85 deg's left, 90 deg's right PT-OP-M Strength Start: 01/13/21 14:33 Freq: Status: Active Protocol: Document 01/16/21 14:28 LRN (Rec: 01/16/21 16:13 LRN [id number]) Trunk Strength Trunk Manual Muscle Testing Testing Position Supine & Prone Core Stabilization Loss of core with RSLR, & R hip ext . Hip Strength Hip Manual Muscle Testing Right Flexion (L2) 5 Normal Extension (S1) 4 Good Abduction 5 Normal Adduction 5 Normal External Rotation 4 Good Internal Rotation 4 Good Left Flexion (L2) 5 Normal Extension (S1) 5 Normal Abduction 5 Normal Adduction 5 Normal External Rotation 5 Normal Internal Rotation 5 Normal PT-OP-T Assessment and Plan Start: 01/13/21 14:33 Freq: Status: Active Protocol: Document 08/18/21 08:29 LRN (Rec: 08/18/21 08:35 LRN [id number]) Physical Therapy Assessment Goals Three Impairment Pt not able to maintain core stability with resistance to LE's. Impairment Loss of core stability with resistance to R LE. LBP rated 4-6/10 Short Term Goal (STG) Pt will be able to stabilize the core with R LE movements against gravity. (02/06/21: Mild loss of stability of core with RLE flex movement against gravity, not checked for other planes) . STG Duration 02/13/21 (GOAL NOT MET, Pt unavailable for final assessment) Fryer Operator Goal (LTG) Pt will be able to sit 30' in car without increasing R LBP. (02/06/21: Able to sit 30-60' using a back support without onset of back pain) LTG Duration 04/16/21 (01/26/21: GOAL MET with use of back support). Two Impairment Decreased lumbar and hip mobility w/onset of R LBP Impairment Lumbar flexion is 65 deg's (45 deg's hip flexion) with pain on return to stand. Hip IR is 30 deg's bilaterally , ER 65 R, 85 L. Short Term Goal (STG) Pt will be able to bend over to put on clothes without support with tolerable pain. (01/26/21: Able to dress today ). STG Duration 02/13/21 (01/26/21: MET GOAL) Retirement Goal (LTG) Pt will be painfree with bending over to picking crew supervisor a object and returning to upright. LTG Duration 04/16/21 (01/26/21: MET GOAL) One Impairment HEP Short Term Goal (STG) Pt will be educated in proper transfer (sit<>stand, sit<> supine) (01/19/21: Pt educated in proper hip hinge for transfers and proper log roll technique for transfers in/out of bed). STG Duration 01/23/21 (01/19/21: MET GOAL ) Fryer Operator Goal (LTG) Pt will be independent in a self care HEP so pt is educated in knowing what she should do to strengthen and minimize pain onset. (01/19/21: HEP added: Piriformis & lateral hip stretch). (01/26/21: HEP: R hip ER stretch & DANIE stretch/ strengthening) LTG Duration 04/16/21 (01/19/21: Progressed) Assessment Summary Assessment Pt was last seen 02/06/21 and failed to return for her last remaining visit. The pt overall had made some good improvement. She had left for 2 weeks over the holidays and cancelled her last appointment without rescheduling. The pt is being discharged due to lack of attendance and would need a new referral to return. Physical Therapy Plan Discharge Physical Therapy Discharge Reasons No Longer Attending PT Discharge Comments See assessment above. Thank you for your referral.
== END 2021-08-19 11:59 ==
LOC: PHYS 12:45
PROVIDERS: PCP Family Medicine; Referring Provider Family Medicine; Visit Provider Family Medicine
DX: M54.50 Low back pain, unspecified (principal); M62.81 Muscle weakness (generalized); M40.37 Flatback syndrome, lumbosacral region; M40.35 Flatback syndrome, thoracolumbar region
CPT/HCPCS: 97110; 97162; 97535